=== PATIENT | female | born 1995 ===

== ENCOUNTER 2017-06-04 03:16 | Emergency (ER) | payer OTHER ==
[2017-06-04 03:47] VITALS: O2SAT 98
--- NOTE | 2017-06-04 03:59 | ED PDOC ---
Arrival/HPI - General Chief Complaint: Medical Clearance Time Seen by Provider: 06/04/17 03:54 - History of Present Illness Narrative History of Present Illness (Text): 06/04/17 03:56 Patient is a 21 year old female whose past medical history includes polycystic ovaries, who presents to the Emergency department complaining of headache, vomiting, and body aches. Patient reports that her headache was temporarily alleviated by Theraflu but her symptoms worsened approximately 2 hours ago. Patient denies fevers, chills, shortness of breath, chest pain, dyspnea on exertion, cough, nausea, diarrhea, dizziness, back pain, neck pain, or any other complaint. Time/Duration: 1-3 hours (symptoms worsened 2 hours ago) Symptom Course: Worsening Activities at Onset: Rest Context: Home Past Medical History - Provider Review Nursing Documentation Reviewed: Yes - Cardiac Hx Cardiac Disorders: No - Pulmonary Hx Respiratory Disorders: No - Neurological Hx Neurological Disorder: No - HEENT Hx HEENT Disorder: No - Renal Hx Renal Disorder: No - Endocrine/Metabolic Hx Endocrine Disorders: No - Hematological/Oncological Hx Blood Disorders: No - Integumentary Hx Dermatological Disorder: No - Musculoskeletal/Rheumatological Hx Musculoskeletal Disorders: No - Gastrointestinal Hx Gastrointestinal Disorders: No - Genitourinary/Gynecological Other/Comment: polycystic ovary - Psychiatric Hx Psychophysiologic Disorder: No Hx Substance Use: No - Surgical History Hx Appendectomy: Yes - Anesthesia Hx Anesthesia: No Family/Social History - Physician Review Nursing Documentation Reviewed: Yes Family/Social History: No Known Family HX Smoking Status: Light Smoker < 10 Cigarettes Daily Hx Alcohol Use: Yes Frequency of alcohol use: Socially Hx Substance Use: No Allergies/Home Meds Allergies/Adverse Reactions: Allergies No Known Allergies Allergy (Verified 06/04/17 03:40) Home Medications: Home Meds Medication Instructions Recorded Confirmed Amoxicillin/Potassium Clav 1 tab PO DAILY 06/04/17 06/04/17 [Amox-Clav 875-125 mg Tablet] Review of Systems - Physician Review All systems were reviewed & negative as marked: Yes - Review of Systems Constitutional: absent: Fevers, Night Sweats Respiratory: absent: SOB, Cough Cardiovascular: absent: Chest Pain, YAN Gastrointestinal: Vomiting. absent: Diarrhea Neurological: Headache. absent: Dizziness Physical Exam Vital Signs Reviewed: Yes Vital Signs Temp Pulse Resp BP Pulse Ox 06/04/17 06:55 98.7 F 85 18 105/66 98 06/04/17 03:42 98.6 F 116 H 22 98 Temperature: Afebrile Pulse: Regular Respiratory Rate: Normal Mental Status: Positive for: Alert and Oriented X 3 - Systems Exam Head: Present: Atraumatic, Normocephalic Pupils: Present: PERRL Extroacular Muscles: Present: EOMI Conjunctiva: Present: Normal Mouth: Present: Moist Mucous Membranes Neck: Present: Normal Range of Motion Respiratory/Chest: Present: Clear to Auscultation, Good Air Exchange. No: Respiratory Distress, Accessory Muscle Use Cardiovascular: Present: Regular Rate and Rhythm, Normal S1, S2. No: Murmurs Abdomen: No: Tenderness, Distention, Peritoneal Signs Back: Present: Normal Inspection Upper Extremity: Present: Normal Inspection. No: Cyanosis, Edema Lower Extremity: Present: Normal Inspection. No: Edema Neurological: Present: GCS=15, CN II-XII Intact, Speech Normal Skin: Present: Warm, Dry, Normal Color. No: Rashes Psychiatric: Present: Alert, Oriented x 3, Normal Insight, Normal Concentration Medical Decision Making ED Course and Treatment: 06/04/17 04:01 Impression: Patient is a 21 year old female with headache, vomiting, and general body ache. Differential Diagnosis included but are not limited to: viral syndrome Plan: -- lab -- Rapid strep group A test -- IV fluid -- urinalysis -- Reassess and disposition Prior Visits: Patient has not previously presented to the Emergency department. Progress Notes: 06/04/17 06:55 On re-evaluation, patient feels better and is in no acute distress. I have discussed the results and plan with the patient, who expresses understanding. Patient in agreement with plan to be discharged home. Patient is stable for discharge. Patient was instructed to follow up with physician or return if symptoms worsen or new concerning symptoms arise. - Lab Interpretations Microbiology Results: Microbiology Results 06/04/17 04:10 Throat Group A Strep Throat Culture - Final NO BETA STREP GROUP A ISOLATED. Lab Results: 06/04/17 04:10 06/04/17 04:10 Lab Results 06/04/17 04:10: Grp A Beta Strep Ag Negative 06/04/17 04:10: Urine Color Yellow, Urine Appearance Sl cloudy, Urine pH 6.0, Ur Specific [place] 1.025, Urine Protein 30 H, Urine Glucose (UA) Negative, Urine Ketones 15 H, Urine Blood Negative, Urine Nitrate Negative, Urine Bilirubin Small H, Urine Urobilinogen 1.0 H, Ur Leukocyte Esterase Negative, Urine RBC 0 - 2, Urine WBC 0 - 2, Ur Epithelial Cells 4 - 5 06/04/17 04:10: Influenza Typ A,B (EIA) Negative for flu a/b 06/04/17 04:10: WBC 9.9, RBC 4.90, Hgb 15.6, Hct 44.3, MCV 90.4, MCH 31.8, MCHC 35.2, RDW 12.8, Plt Count 331, MPV 8.7, Gran % 88.7 H, Lymph % (Auto) 7.1 L, [place] % (Auto) 3.8, Eos % (Auto) 0.2 L, Baso % (Auto) 0.2, Gran # 8.77 H, Lymph # (Auto) 0.7 L, [place] # (Auto) 0.4, Eos # (Auto) 0.0, Baso # (Auto) 0.02 06/04/17 04:10: Sodium 139, Potassium 4.1, Chloride 102, Carbon Dioxide 23, Anion Gap 19, BUN 16, Creatinine 0.7, Est GFR ( Amer) > 60, Est GFR (Non- Af Amer) > 60, Random Glucose 103, Calcium 10.4, Total Bilirubin 0.9, AST 34, ALT 31, Alkaline Phosphatase 46, Total Protein 8.2, Albumin 4.8, Globulin 3.4, Albumin/Globulin Ratio 1.4 I have reviewed the lab results: Yes - Medication Orders Current Medication Orders: Discontinued Medications Sodium Chloride (Sodium Chloride 0.9%) 1,000 mls @ 80 mls/hr IV .[id number] BINTA Last Admin: 06/04/17 04:13 Dose: 80 mls/hr eMAR Start Stop Document 06/04/17 04:13 AD (Rec: 06/04/17 04:14 AD [id number]) Intravenous Solution Start Date 06/04/17 Start Time 04:14 Ondansetron HCl (Zofran Inj) 4 mg IVP STAT STA Stop: 06/04/17 04:43 Last Admin: 06/04/17 04:54 Dose: 4 mg IVP Administration Document 06/04/17 04:54 AD (Rec: 06/04/17 04:54 AD [id number]) Charges for Administration # of IVP Administrations 1 Disposition/Present on Arrival - Present on Arrival Any Indicators Present on Arrival: No History of DVT/PE: No History of Uncontrolled Diabetes: No Urinary Catheter: No History of Decub. Ulcer: No History Surgical Site Infection Following: None - Disposition Have Diagnosis and Disposition been Completed?: Yes Diagnosis: Viral syndrome Disposition: HOME/ ROUTINE Disposition Time: 06:55 Condition: GOOD Discharge Instructions (ExitCare): Viral Syndrome (DC) Prescriptions: levoFLOXacin [Levaquin] 500 mg PO DAILY #10 tab Ondansetron [Zofran Odt] 8 mg PO TID PRN #10 odt PRN Reason: Nausea/Vomiting Forms: [facility] (K[place]itian), SCHOOL NOTE, WORK NOTE
[2017-06-04] MEDS ORDERED: Sodium Chloride 0.9% 1,000 ML IV SCH (04:00)
[2017-06-04 04:24] LABS: URINE BILIRUBIN SMALL (NEGATIVE); URINE BLOOD NEGATIVE (NEGATIVE); URINE GLUCOSE (UA) NEGATIVE (NEGATIVE); URINE LEUKOCYTE ESTERASE NEGATIVE Leu/uL (NEGATIVE); URINE PROTEIN 30 mg/dL (<30 mg/dL)
[2017-06-04 04:25] LABS: BASO # 0.02 K/mm3 (0.0-2.0); BASO % 0.2 % (0.0-3.0); EOS % 0.2 % (1.5-5.0); GRAN # 8.77 (1.4-6.5); GRAN % 88.7 % (50.0-68.0); HEMOGLOBIN 15.6 g/dL (12.0-16.0); LYMPH # 0.7 (1.2-3.4); LYMPH % 7.1 % (22.0-35.0); MEAN CELL VOLUME 90.4 fl (80.0-105.0); MEAN CORPUSCULAR HEMOGLOBIN 31.8 pg (25.0-35.0); MEAN CORPUSCULAR HGB CONC 35.2 g/dl (31.0-37.0); MEAN PLATELET VOLUME 8.7 fl (7.0-11.0); MONO # 0.4 (0.1-0.6); MONO % 3.8 % (1.0-6.0); RBC 4.9 10^6/uL (3.5-6.1); RED CELL DISTRIBUTION WIDTH 12.8 % (11.5-14.5); WHITE BLOOD COUNT 9.9 10^3/ul (4.5-11.0)
[2017-06-04 04:27] LABS: URINE APPEARANCE SL CLOUDY (CLEAR); URINE COLOR YELLOW (YELLOW)
[2017-06-04 04:38] LABS: ALB/GLOB RATIO 1.4 (1.1-1.8); ALBUMIN 4.8 g/dL (3.0-4.8); ALT/SGPT 31 U/L (7-56); AST/SGOT 34 U/L (14-36); BLOOD UREA NITROGEN 16 mg/dL (7-21); CALCIUM 10.4 mg/dL (8.4-10.5); GFR AFRICAN-AMERICAN > 60; GFR NON-AFRICAN AMERICAN > 60
[2017-06-04 04:53] LABS: URINE RBC 0 - 2 /hpf (0-2); URINE WBC 0 - 2 /hpf (0-6)
[2017-06-04 06:57] VITALS: BP 105/66; PULSE 85; RESP 18; TEMP 98.7
== END 2017-06-04 06:57 | disposition home or self-care (01) ==
LOC: MERGE 03:16 → ED 03:16
DX: B34.9 Viral infection, unspecified (principal); F17.210 Nicotine dependence, cigarettes, uncomplicated
CPT/HCPCS: 80053; 81001; 85025; 87070; 87430; 87804; 96374; 99283; J2405; J7040